=== PATIENT | female | born 1985 | race African-American/Black ===

== ENCOUNTER 2018-04-01 10:35 | Inpatient (IN) | payer BC ==
[2018-04-01] MEDS ORDERED: OXYTOCIN 10 UNIT/ML 1 ML VIAL IM PRN (10:37)
[2018-04-01] MEDS ORDERED: LIDOCAINE 1% (PF) 10 MG/ML (30 ML SDV) SQ PRN (10:37)
[2018-04-01] MEDS ORDERED: CARBOPROST TROMETHAMINE 250 MCG/ML 1 ML AMP IM PRN (10:37)
[2018-04-01] MEDS ORDERED: AMPICILLIN 2,000 MG in SODIUM CHLORIDE 0.9% 100 ML IVPB STA (10:37)
[2018-04-01] MEDS ORDERED: METHYLERGONOVINE 0.2 MG/ML 1 ML AMP IM PRN (10:37)
[2018-04-01] MEDS ORDERED: TERBUTALINE 1 MG/ML VIAL SQ PRN (10:37)
[2018-04-01] MEDS ORDERED: OXYTOCIN 20 UNITS/1000 ML NS 1,000 ML IV SCH ×2 (10:45→18:45)
[2018-04-01] MEDS: LACTATED RINGERS 1,000 ML IV SCH ×2 (10:52→13:57)
[2018-04-01 10:59] VITALS: BMI 32.1
[2018-04-01 11:30] LABS: Basophils % (A) 0 %; Eosinophils # (A) 0.1 k/uL (0-0.7); Eosinophils % (A) 1 %; HCT 36.5 % (34.0-46.0); HGB 11.5 gm/dL (11.4-16.0); Hypochromasia Moderate; Lymphocytes # (A) 1.7 k/uL (1.0-4.8); Lymphocytes % (A) 16 %; MCH 22.4 pg (25.0-35.0); MCHC 31.5 g/dL (31.0-37.0); MCV 71.1 fL (80.0-100.0); Mean Platelet Volume 6.6; Microcytosis Moderate; Monocytes # (A) 0.5 k/uL (0-1.0); Monocytes % (A) 5 %; Neutrophils # (A) 7.7 k/uL (1.3-7.7); Neutrophils % (A) 76 %; Platelet Count 243 k/uL (150-450); RBC 5.13 m/uL (3.80-5.40); RDW 14.6 % (11.5-15.5); WBC 10.2 k/uL (3.8-10.6)
[2018-04-01] MEDS ORDERED: fentaNYL (PF) 50 MCG/ML 5 ML AMP ONE (13:18)
[2018-04-01] MEDS ORDERED: SODIUM CHLORIDE 0.9% 100 ML BAG ONE (13:18)
[2018-04-01] MEDS ORDERED: BUPIVACAINE (PF) 0.25% 30 ML VIAL ONE (13:18)
[2018-04-01] MEDS ORDERED: ROPIVACAINE 100 MG, fentaNYL (PF) 200 MCG in SODIUM CHLORIDE 0.9% 76 ML EPIDURAL ONE (13:36)
[2018-04-01] MEDS: AMPICILLIN 1,000 MG in SODIUM CHLORIDE 0.9% 50 ML IVPB SCH ×2 (16:02→23:09)
[2018-04-01] MEDS ORDERED: diphenhydrAMINE 50 MG CAP PO PRN (18:33)
[2018-04-01] MEDS ORDERED: diphenhydrAMINE 25 MG CAP PO PRN (18:33)
[2018-04-01] MEDS ORDERED: LANOLIN CREAM 5 GM TUBE TOPICAL PRN (18:33)
[2018-04-01] MEDS ORDERED: HYDROCORTISONE 2.5% RECTAL CREAM 30 GM TUBE RECTAL PRN (18:33)
[2018-04-01] MEDS ORDERED: SIMETHICONE 80 MG CHEWABLE PO PRN (18:33)
[2018-04-01] MEDS ORDERED: diphenhydrAMINE 50 MG/ML 1 ML VIAL IVP PRN ×2 (18:33)
[2018-04-01] MEDS ORDERED: ZOLPIDEM 5 MG TAB PO PRN (18:33)
[2018-04-01] MEDS ORDERED: WITCH HAZEL 1 EACH MED..PAD TOPICAL PRN (18:33)
[2018-04-01] MEDS ORDERED: BENZOCAINE/MENTHOL SPRAY 1 GM/SPRAY AEROSOL TOPICAL PRN (18:33)
--- NOTE | 2018-04-01 18:35 | P.PROBDLV ---
Vaginal Delivery Note - . Vaginal Delivery Note: This is a very pleasant 33-year-old 6 para 5005 at 37-0/7 weeks that presented to labor and delivery with complaints of spontaneous rupture of membranes. Gross rupture of membranes was noted at the time of admission and she was noted to be group beta strep positive. Patient was admitted to labor and delivery ampicillin was started and Pitocin augmentation of labor was begun. Patient progressed through labor without difficulty eventually getting an epidural and had a normal spontaneous vaginal delivery of a viable male at 1804, weight of 7 lbs. 12 oz., Apgars of 7 and 9 at one and 5 minutes respectively. Next Estimated blood loss approximately 400 mL, on inspection the patient's vaginal vault after delivery no lacerations were noted. Next Patient and infant tolerated delivery well and are resting comfortably.
--- NOTE | 2018-04-01 18:41 | P.HPOB ---
History of Present Illness H&P Date: 04/01/18 Chief Complaint: IUP at 37-0/7 weeks, spontaneous rupture of membranes This is a 33-year-old 6 para 5005 at 37-0/7 weeks with an estimated due date of that presented to labor and delivery with complaints of gross rupture of membranes. Patient noted good movement and denied vaginal bleeding she did admit to occasional contractions. Next On blood work a blood type of O+ was resulted, rubella immune, RPR nonreactive, hepatitis B surface antigen negative, HIV negative, beta strep was positive on 03/18. Review of Systems Constitutional: Denies chills, Denies fatigue, Denies fever Cardiovascular: Reports edema Respiratory: Denies cough, Denies dyspnea Gastrointestinal: Denies constipation, Denies diarrhea Genitourinary: Reports Past Medical History Past Medical History: Asthma History of Any Multi-Drug Resistant Organisms: None Reported Past Surgical History: No Surgical Hx Reported Past Anesthesia/Blood Transfusion Reactions: No Reported Reaction Past Psychological History: No Psychological Hx Reported Smoking Status: Former smoker Past Alcohol Use History: None Reported Past Drug Use History: None Reported - Past Family History Mother Family Medical History: No Reported History Medications and Allergies Home Medications Medication Instructions Recorded Confirmed Type No Known Home Medications 04/01/18 04/01/18 History Allergies Allergy/AdvReac Type Severity Reaction Status Date / Time No Known Allergies Allergy Verified 04/01/18 10:36 Exam Osteopathic Statement: *. No significant issues noted on an osteopathic structural exam other than those noted in the History and Physical/Consult. - Vital Signs Vital signs: Vital Signs Temp Pulse Resp BP Pulse Ox 04/01/18 18:23 106 H 18 131/76 04/01/18 11:00 97.3 F L 94 16 137/87 99 04/01/18 10:54 97.3 F L 94 16 137/87 99 Intake and Output 04/01/18 04/01/18 04/01/18 06:59 14:59 22:59 Intake Total 800 Output Total 1 Balance 799 Intake: IV 800 Lactated Ringers 1,000 ml 800 @ 125 mls/hr IV .Q8H [facility] Rx#:[id number] Output: Urine 1 Other: Weight 90.265 kg - OBG Physical Exam Cervix: 2/80/-3, grossly ruptured Uterus: enlarged Results Result Diagrams: 04/01/18 10:50 Abnormal Lab Results - Last 24 Hours (Table) 04/01/18 Range/Units 10:50 MCV 71.1 L (80.0-100.0) fL MCH 22.4 L (25.0-35.0) pg Assessment and Plan (1) Term Current Visit: Yes Status: Acute Code(s): Z34.80 - ENCOUNTER FOR SUPRVSN OF NORMAL , UNSP TRIMESTER SNOMED Code(s): 12856371 (2) Positive GBS test Current Visit: Yes Status: Acute Code(s): B95.1 - STREPTOCOCCUS, GROUP B, CAUSING DISEASES CLASSD ELSR SNOMED Code(s): 2967308087084 (3) SROM (spontaneous rupture of membranes) Current Visit: Yes Status: Acute Code(s): CJM4067 - SNOMED Code(s): 990222663 Plan: Will admit to labor and delivery for IV antibiotics and Pitocin augmentation of labor. Patient does request epidural was uncomfortable anesthesia was notified. Anticipate spontaneous vaginal delivery later today
[2018-04-01] MEDS: IBUPROFEN 600 MG TAB PO PRN (23:46)
[2018-04-01] MEDS: SENNOSIDES-DOCUSATE SODIUM 1 EACH TAB PO SCH (23:46)
[2018-04-02] MEDS: ACETAMINOPHEN TAB 325 MG TAB PO PRN ×2 (02:34→12:56)
[2018-04-02] MEDS: SENNOSIDES-DOCUSATE SODIUM 1 EACH TAB PO SCH ×2 (07:34→19:55)
[2018-04-02] MEDS: IBUPROFEN 600 MG TAB PO PRN ×3 (07:34→21:55)
--- NOTE | 2018-04-02 09:06 | P.DS ---
Providers Date of admission: 04/01/18 10:35 Expected date of discharge: 04/02/18 Attending physician: Noy Hernández - Discharge Diagnosis(es) (1) Term Current Visit: Yes Status: Acute (2) Positive GBS test Current Visit: Yes Status: Acute (3) SROM (spontaneous rupture of membranes) Current Visit: Yes Status: Acute (4) Status post normal vaginal delivery Current Visit: Yes Status: Acute Hospital Course: This is a very pleasant 33-year-old 6 para 5 at 37-0/7 weeks that presented with spontaneous rupture of membranes. Patient was admitted to labor and delivery Pitocin augmentation/IV antibiotics were started patient progressed to complete prior to this she did get an epidural. She began pushing and had normal spontaneous vaginal delivery of a viable male at 1804, weight of 7 lbs. 12 oz., Apgars of 7 and 9 at one and 5 minutes respectively. Patient's course has been uneventful. On this day #1 she is ambulating and voiding without difficulty. She is tolerating a regular diet without nausea or vomiting. Her lochia is minimal. She is currently bottle feeding. Patient Condition at Discharge: Good Plan - Discharge Summary New Discharge Prescriptions: No Action No Known Home Medications Discharge Medication List No Known Home Medications 04/01/18 [History] Follow up Appointment(s)/Referral(s): Noy Hernández DO [Doctor of Osteopathic Medicine] - 4 Weeks Patient Instructions/Handouts: Vaginal Delivery (DC), Vaginal Delivery (GEN) Activity/Diet/Wound Care/Special Instructions: No tub baths or intercourse until appt Discharge Disposition: HOME SELF-CARE
[2018-04-03 03:20] VITALS: RESP 16
[2018-04-03] MEDS: SENNOSIDES-DOCUSATE SODIUM 1 EACH TAB PO SCH (07:55)
[2018-04-03] MEDS: IBUPROFEN 600 MG TAB PO PRN (08:00)
[2018-04-03 08:04] VITALS: BP 119/69; PULSE 80; TEMP 98.7
== END 2018-04-03 10:40 | disposition home or self-care (01) | DRG 775 ==
LOC: 4FBP 10:35
PROVIDERS: ADMIT Obstetrics & Gynecology Obstetrics; ATTEND Obstetrics & Gynecology Obstetrics
PROC: 10E0XZZ Delivery of Products of Conception, External Approach (ICD-10-PCS; principal; 2018-04-01)
PROC: 00HU33Z Insertion of Infusion Device into Spinal Canal, Percutaneous Approach (ICD-10-PCS; 2018-04-01)
PROC: 3E0R3BZ Introduction of Anesthetic Agent into Spinal Canal, Percutaneous Approach (ICD-10-PCS; 2018-04-01)
DX: O99.824 Streptococcus B carrier state complicating childbirth (principal); J45.909 Unspecified asthma, uncomplicated; O99.52 Diseases of the respiratory system complicating childbirth; Z37.0 Single live birth; Z3A.37 37 weeks gestation of pregnancy; Z87.891 Personal history of nicotine dependence
CPT/HCPCS: 85025

== ENCOUNTER → 2018-04-24 | Outpatient (CLI) | payer BC ==
--- NOTE | 2018-04-24 08:21 | CT ---
EXAMINATION TYPE: CT sinus wo con DATE OF EXAM: 04/24/2018 COMPARISON: NONE HISTORY: Chronic sinusitis CT DLP: 641 mGycm. Automated Exposure Control for Dose Reduction was Utilized. TECHNIQUE: CT scan of the sinuses is performed without contrast, axial images are obtained, coronal r eformatted images are also reviewed. FINDINGS: There is complete opacification of the left maxillary sinus and moderate mucosal thickening of the left ethmoid sinuses with complete opacification of the left frontal sinuses. The right maxil rain sinus, right frontal sinus, sphenoid sinuses and mastoid air cells are well aerated. Scant mucos al thickening is seen within the right ethmoid sinuses. There is very mild leftward nasal septal bryan ation in its midportion and posteriorly with a small 3 mm leftward nasal septal spur. Nasal septum an d nasal bone appear intact as does the maxillary spine. No acute facial bone fracture is seen. There is complete occlusion of the left ostiomeatal complex and frontal recess due to mucosal thicken ing. A 3 mm left-sided Magdalene cell is identified. No arturo bullosa are seen. Very mild right inferio r nasal turbinate mucosal hypertrophy is present. The right ostiomeatal complex is patent. Right fron janice recess is also patent. Temporomandibular joints are symmetric. Exam is suboptimal for evaluation of intracranial structures. IMPRESSION: 1. Complete opacification of the left maxillary sinus and frontal sinus with occlusion of the left os tium renal complex and frontal recess and moderate mucosal thickening of the left ethmoid sinuses. 2. Patency of the right frontal recesses and ostiomeatal complex. 3. Very mild leftward nasal septal deviation and a small leftward nasal septal spur. 4. 3 mm left-sided solitary Magdalene cell. 5. Minimal right inferior nasal turbinate mucosal hypertrophy.
== END | disposition home or self-care (01) ==
LOC: RADCTMAIN 07:01
PROVIDERS: ATTEND Otolaryngology
DX: J34.2 Deviated nasal septum (principal); J34.89 Other specified disorders of nose and nasal sinuses
CPT/HCPCS: 70486

== ENCOUNTER → 2018-05-19 | Outpatient (CLI) | payer BC ==
[2018-05-19 14:26] LABS: Basophils % (A) 0 %; Eosinophils # (A) 0.1 k/uL (0-0.7); Eosinophils % (A) 2 %; HCT 39.3 % (34.0-46.0); HGB 11.3 gm/dL (11.4-16.0); Hypochromasia Marked; Lymphocytes # (A) 2.3 k/uL (1.0-4.8); Lymphocytes % (A) 30 %; MCH 20.9 pg (25.0-35.0); MCHC 28.8 g/dL (31.0-37.0); MCV 72.6 fL (80.0-100.0); Mean Platelet Volume 6.2; Microcytosis Slight; Monocytes # (A) 0.4 k/uL (0-1.0); Monocytes % (A) 5 %; Neutrophils # (A) 4.6 k/uL (1.3-7.7); Neutrophils % (A) 61 %; Platelet Count 296 k/uL (150-450); RBC 5.42 m/uL (3.80-5.40); WBC 7.6 k/uL (3.8-10.6)
== END | disposition home or self-care (01) ==
LOC: LABPAT 13:39
PROVIDERS: ATTEND Obstetrics & Gynecology Obstetrics
DX: Z01.812 Encounter for preprocedural laboratory examination (principal)
CPT/HCPCS: 36415; 85025

== ENCOUNTER 2018-05-26 06:51 | Day surgery (SDC) | payer BC ==
[2018-05-15 15:37] VITALS: BMI 29.0
[~2018-05-26 06:51] MED LIST: ACETAMINOPHEN IV (For NPO) 1,000 MG in EMPTY BAG 1 BAG IVPB ONE; DEXAMETHASONE SOD PHOSPHATE 10 MG/ML 1 ML VIAL IV ONE; LACTATED RINGERS 1,000 ML IV SCH; LIDOCAINE 1% 20 ML VIAL (10MG/ML) FOR IV START INTRADERMA PRN; MIDAZOLAM 2 MG/2 ML VIAL IV PRN; ONDANSETRON 4 MG/2 ML VIAL IVP ONE; Pre Op ABX Message 1 EACH MISC MISCELLANE ONE; fentaNYL (PF) 50 MCG/ML 2 ML AMP IV PRN
[2018-05-26 07:50] VITALS: RESP 16
[2018-05-26] MEDS ORDERED: fentaNYL (PF) 50 MCG/ML 2 ML AMP ONE (08:48)
[2018-05-26] MEDS ORDERED: NEOSTIGMINE 1 MG/ML 10 ML VIAL ONE (08:48)
[2018-05-26] MEDS ORDERED: LIDOCAINE 1% INJ 10MG/ML (20 ML MDV) ONE (08:48)
[2018-05-26] MEDS ORDERED: GLYCOPYRROLATE 0.2 MG/ML 2 ML VIAL ONE (08:48)
[2018-05-26] MEDS ORDERED: MIDAZOLAM 2 MG/2 ML VIAL ONE (08:48)
[2018-05-26] MEDS ORDERED: ROCURONIUM BROMIDE 10 MG/ML 10 ML VIAL IV ONE (08:48)
[2018-05-26] MEDS ORDERED: PROPOFOL 10 MG/ML 20 ML VIAL IV ONE (08:48)
[2018-05-26] MEDS ORDERED: ROPIVACAINE 5 MG/ML 30 ML VIAL MISCELLANE ONE ×2 (09:08→09:19)
[2018-05-26] MEDS ORDERED: SILVER NITRATE APPLICATOR 1 EACH STICK..EA. TOPICAL ONE (09:22)
[2018-05-26 09:50] VITALS: TEMP 97.1
--- NOTE | 2018-05-26 10:18 | P.OP ---
Date of Procedure: 05/26/18 Preoperative Diagnosis: Family status complete, undesired fertility Postoperative Diagnosis: Same Procedure(s) Performed: Laparoscopic tubal ligation with Falope-Rings Anesthesia: KIMBERLY Surgeon: Noy Hernández Estimated Blood Loss (ml): 5 IV fluids (ml): 1,000 Urine output (ml): 50 Pathology: none sent Condition: stable Disposition: PACU Indications for Procedure: Family status complete Operative Findings: Normal pelvic anatomy visualized Description of Procedure: Patient was seen in the preoperative area and informed consent was obtained. She states once again that she is done with childbearing and wishes permanent sterilization. Patient was taken to the operating suite where general anesthesia was obtained without difficulty by the anesthesia department. She was then prepped and draped in the normal sterile fashion in the dorsal lithotomy position a red rubber catheter was used to drain the bladder of clear yellow urine. A speculum was then placed the anterior lip of the cervix was visualized and grasped with a single-tooth tenaculum and acorn uterine manipulator was advanced into the cervix as a means to manipulate the uterus throughout the procedure. Attention was then turned to the patient's abdomen where in the umbilical fold a small skin incision is made. Through this incision the Veress needle was placed once the Veress needle was deemed to be in the appropriate position with a drop in CO2 pressure with insufflation of CO2 gas CO2 insufflation was allowed to occur. Approximately 3 L of gas were used to obtain pneumoperitoneum. At this time a 5 mm trocar and sleeve with the laparoscope in place was placed through the skin incision and toward the pneumoperitoneum. On inspection of the patient's pelvis the above-noted findings are visualized. An additional port site is placed in the right lower quadrant this is an 8 mm port and placed under direct visualization. At this time the Falope ring applicator had been opened and the left fallopian tube was grasped with applicator and operated according to cotton buyer's instructions. This was then repeated on the right fallopian tube tubes were noted to be blanching after ring placement. Hemostasis was appreciated. At this time all instruments were removed from the patient's abdomen skin incisions were closed with 4-0 Vicryl in a subcuticular fashion. Steri-Strips and sterile dressings were applied as needed. Attention then turned the patient's vaginal vault the acorn uterine manipulator was then removed without difficulty the anterior lip of the cervix was noted to be hemostatic after the single tooth tenaculum had been removed. All counts were correct 2 patient tolerated procedure well and was taken the recovery room awake in stable condition
[2018-05-26 11:37] VITALS: BP 124/78; PULSE 66
== END 2018-05-26 11:56 | disposition home or self-care (01) ==
LOC: OR 06:51
PROVIDERS: ATTEND Obstetrics & Gynecology Obstetrics
DX: Z30.2 Encounter for sterilization (principal); J45.909 Unspecified asthma, uncomplicated; Z87.891 Personal history of nicotine dependence; Z82.5 Family history of asthma and other chronic lower respiratory diseases; Z80.3 Family history of malignant neoplasm of breast
CPT/HCPCS: 58671; 81025; J2250; J1100; J2710; J2405; J2001; J3010; J2795; J0131; J2704